=== PATIENT | male | born 1965 | race African-American/Black ===

== ENCOUNTER 2019-05-18 13:49 | Emergency (ER) | payer BC ==
[~2019-05-18] VITALS: Ht 188 cm; Wt 105.7 kg
[2019-05-18] MEDS ORDERED: AMPYRA10 MG (13:59)
[2019-05-18] MEDS ORDERED: ZYLOPRIM300 MG (14:00)
[2019-05-18] MEDS ORDERED: AMICAR500 MG (14:00)
== END 2019-05-18 16:05 | disposition home or self-care (01) ==
LOC: ER 13:49
DX: L03.114 Cellulitis of left upper limb (principal)